=== PATIENT | male | born 1960 | race Caucasian/White ===

== ENCOUNTER 2017-08-05 10:06 | Day surgery (SDC) | payer OTHER ==
[~2017-08-05] VITALS: Ht 177.8 cm; Wt 91.3 kg
[2017-08-05 10:51] VITALS: BP 126/88; PULSE 82; TEMP 98
[2017-08-05] MEDS ORDERED: ZYRTEC 10MG10 MG PO (11:00)
[2017-08-05] MEDS ORDERED: PRILOSEC 20MG20 MG PO (11:00)
[2017-08-05] MEDS ORDERED: FLONASEALLERGY NS (11:01)
[2017-08-05] MEDS ORDERED: ANTACID 225 MG360 M1 PO (11:02)
[2017-08-05 12:05] VITALS: BP 115/79; PULSE 76; TEMP 98.2
[2017-08-05 12:15] VITALS: BP 122/87; PULSE 81
[2017-08-05 12:30] VITALS: BP 110/78; PULSE 67
[2017-08-05 12:45] VITALS: BP 104/68; PULSE 66
[2017-08-05 13:00] VITALS: BP 104/70; PULSE 70
== END 2017-08-05 13:25 | disposition home or self-care (01) ==
LOC: SDCO 10:06
DX: Z12.11 Encounter for screening for malignant neoplasm of colon (principal); K21.9 Gastro-esophageal reflux disease without esophagitis
CPT/HCPCS: OP; J2250; J3010; J7030